=== PATIENT | male | born 1975 | race Caucasian/White ===

== ENCOUNTER 2022-09-12 08:45 | Outpatient (REF) | payer OTHER, SELFPAY ==
[2022-09-12 11:12] LABS: MANUAL DIFF FLAG NO
[2022-09-12 11:48] LABS: Basophils Percent Auto 0.8 % (0-2); Eosinophils Absolute Auto 0.1 X10*3/uL (0.0-0.4); Eosinophils Percent Auto 1.8 % (0-4); Hematocrit 43.6 % (42.0-52.0); Hemoglobin 15.2 g/dl (14.0-18.0); Imm Gran Abs Auto 0.01 X10*3/uL (0.00-0.03); Imm Gran Pct Auto 0.3 % (0.0-0.4); Lymphocytes Absolute Auto 1.1 X10*3/uL (1.2-4.9); Lymphocytes Percent Auto 29.1 % (20-40); Mean Corpuscular HGB Conc 34.9 g/dl (31.0-36.0); Mean Corpuscular Hemoglobin 31.1 pg (27.0-33.0); Mean Corpuscular Volume 89.2 fL (80.0-98.0); Mean Platelet Volume 8.7 fL (9.4-12.4); Monocytes Absolute Auto 0.3 X10*3/uL (0.1-1.2); Monocytes Percent Auto 8.5 % (2-11); Neutrophils Absolute Auto 2.3 x10*3/uL (2.0-8.3); Neutrophils Percent Auto 59.5 % (45-73); Platelet Count 229 X10*3/uL (160-400); Red Blood Count 4.89 X10*6/uL (4.60-5.80); Red Cell Distribution Width 12.6 % (11.0-16.0); White Blood Count 3.9 X10*3/uL (4.8-10.8)
[2022-09-12 12:13] LABS: Estimated Average Glucose 103 mg/dL; Hemoglobin A1c % 5.2 %
[2022-09-12 12:28] LABS: Erythrocyte Sedimentation Rate 7 MM/HR (0-15)
[2022-09-12 12:49] LABS: Alanine Aminotransferase 35 U/L (0-40); Albumin Level 4.2 g/dL (3.5-5.0); Alkaline Phosphatase 78 U/L (39-117); Anion Gap 10 (12-20); Aspartate Amino Transferase 25 U/L (5-37); Bilirubin Total 0.8 mg/dL (0.0-1.0); Blood Urea Nitrogen 16 mg/dL (9-16); C Reactive Protein 0.24 mg/dL (< or = 0.50); Calcium 8.7 mg/dL (8.4-10.2); Carbon Dioxide 30 mmol/L (22-29); Chloride 104 mmol/L (96-108); Cholesterol 195 mg/dL; Estimated Glomerular Filt Rate > 60; Glucose Random 96 mg/dL (60-115); HDL Cholesterol 39 mg/dL; LDL Cholesterol Calculated 146 mg/dl; Potassium 4.2 mmol/L (3.3-5.1); Sodium 140 mmol/L (135-145); Total Protein 6.7 g/dL (6.5-8.0); Triglycerides 50 mg/dL
[2022-09-12 13:08] LABS: Prostate Specific Antigen 0.62 ng/mL (<0.05-4.0)
== END 2022-09-12 08:46 | disposition home or self-care (01) ==
LOC: HO.MANLDS 08:45
PROVIDERS: Visit Provider Physician Assistant
DX: I10 Essential (primary) hypertension (principal); E78.5 Hyperlipidemia, unspecified; R06.02 Shortness of breath; Z12.5 Encounter for screening for malignant neoplasm of prostate
CPT/HCPCS: 36415; 80053; 80061; 83036; 84153; 85025; 85652; 86140

== ENCOUNTER 2023-05-04 07:29 | Outpatient (REF) | payer BC, SELFPAY ==
[2023-05-04 13:27] LABS: MANUAL DIFF FLAG NO
[2023-05-04 13:43] LABS: Basophils Percent Auto 0.7 % (0-2); Eosinophils Absolute Auto 0.1 X10*3/uL (0.0-0.4); Eosinophils Percent Auto 2.3 % (0-4); Hematocrit 45.5 % (42.0-52.0); Hemoglobin 15.6 g/dl (14.0-18.0); Imm Gran Abs Auto 0.02 X10*3/uL (0.00-0.03); Imm Gran Pct Auto 0.5 % (0.0-0.4); Lymphocytes Absolute Auto 1.2 X10*3/uL (1.2-4.9); Lymphocytes Percent Auto 28.9 % (20-40); Mean Corpuscular HGB Conc 34.3 g/dl (31.0-36.0); Mean Corpuscular Hemoglobin 31.6 pg (27.0-33.0); Mean Corpuscular Volume 92.1 fL (80.0-98.0); Mean Platelet Volume 9.2 fL (9.4-12.4); Monocytes Absolute Auto 0.3 X10*3/uL (0.1-1.2); Monocytes Percent Auto 7.7 % (2-11); Neutrophils Absolute Auto 2.6 x10*3/uL (2.0-8.3); Neutrophils Percent Auto 59.9 % (45-73); Platelet Count 222 X10*3/uL (160-400); Red Blood Count 4.94 X10*6/uL (4.60-5.80); Red Cell Distribution Width 12.7 % (11.0-16.0); White Blood Count 4.3 X10*3/uL (4.8-10.8)
[2023-05-04 14:05] LABS: Estimated Average Glucose 97 mg/dL
[2023-05-04 14:11] LABS: Alanine Aminotransferase 34 U/L (0-40); Albumin Level 4.3 g/dL (3.5-5.0); Alkaline Phosphatase 69 U/L (39-117); Anion Gap 11 (12-20); Aspartate Amino Transferase 24 U/L (5-37); Bilirubin Total 0.5 mg/dL (0.0-1.0); Blood Urea Nitrogen 13 mg/dL (9-16); C Reactive Protein 0.19 mg/dL (< or = 0.50); Calcium 9.2 mg/dL (8.4-10.2); Carbon Dioxide 28 mmol/L (22-29); Chloride 107 mmol/L (96-108); Estimated Glomerular Filt Rate > 60; Glucose Random 97 mg/dL (60-115); Potassium 3.9 mmol/L (3.3-5.1); Sodium 142 mmol/L (135-145); Total Protein 7.4 g/dL (6.5-8.0)
[2023-05-04 14:28] LABS: Free T4 (Free Thyroxine) 0.77 ng/dL (0.71-1.85); Thyroid Stimulating Hormone 1.04 uIU/mL (0.32-4.0)
[2023-05-04 14:43] LABS: Erythrocyte Sedimentation Rate 6 MM/HR (0-15)
[2023-05-04 14:45] LABS: Folate 5.9 ng/mL (> or = 4.0); Vitamin B12 331 pg/mL (200-900)
== END 2023-05-04 07:30 | disposition home or self-care (01) ==
LOC: HO.MANLDS 07:29
PROVIDERS: Visit Provider Physician Assistant
DX: R42 Dizziness and giddiness (principal); R51.0 Headache with orthostatic component, not elsewhere classified; R53.83 Other fatigue
CPT/HCPCS: 36415; 80053; 82607; 82746; 83036; 84439; 84443; 85025; 85652; 86140

== ENCOUNTER 2024-12-29 13:16 | Emergency (ER) | payer OTHER, SELFPAY ==
--- OUTSIDE RECORDS SUMMARY | 2024-06-01 11:00 | XMS_ITS | Continuity of Care Document ---
Author Organization [facility] Address [address] [facility] [address] [place] [address] Phone Care Team Providers Care Internet Marketing Manager Name Role Phone Gustavo ANNE, RVSylvia, FRANCA, Jarrell Unavailable U navailable Procedures Procedure Date Office/Outpt E&M Established 15 Mins- CT & [place] Duplex Scan-extrem Veins; Uni/ CT & [place] N Phleb Veins - Extrem 20+ - CT & [place] Duplex Scan-extrem Veins; Uni/ CT & [place] O ct Endovenous Rf, 1st Vein- CT & [place] 2023 Offic/outpt E&m Estab 5 Min Trial- Telem edicine CT & [place] Office/Oupt E&M New Pt 45 Mins- CT & [place] Surgical Stockings CVR Reveal Thigh High - Duplex Scan-extrem Veins; Uni/ CT & [place] J Advance Directives Directive Yes / No Effective Date File Name No Information Encounters Encounter Description Practice Location Reason(s) For Visit Diagnoses Date Provider Providers Copied on Encounter Office/Outpt E&M Established 15 Mins- [place] & [place] [facility], [address] [place] [address] Dr [address], [id number], [place] tel:[phone] CVR - [facility] Venous insufficiency (chronic) (peripheral)Es sential (primary) hypertensionCr amp and spasmRestless legs syndrome 4 Gustavo ANNE RVT, FRANCA Vieyra. [address] [facility], [address], [place], [place], [id number] , [place]. tel:[phone] Referring Provider: Addison Disla, [address] [facility] [address], [place], [address]. tel:[phone] [facility], [address] [place] [address] [address]Al[place], [id number], [place] tel:[phone] [place] Varicose veins of right lower extremity with pain 4 Gustavo ANNE RVT, RPVI Robert. [address] [facility], [address], [facility] [place] [place], [id number] , [place]. tel:[phone] Referring Provider: Addison Disla, [address] [facility] [address], [place], [address]. 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 [address] [facility], [address], [place], [place], [id number] , [place]. tel:[phone] Referring Provider: Addison Disla, [address] [facility] [address], [place], [address]. tel:[phone] [facility], [address] [place] [address] [address]Alen [place], [id number], [place] tel:[phone] [place] Encounter for follow-up examination after completed treatment for conditions other than malignant neoplasmVarico se veins of right lower extremity with other complications 4 Gustavo ANNE RVT, RPVI Robert. [address] [facility], [address], [facility] [place], [id number] , [place]. tel:[phone] Referring Provider: Addison Disla, [address], [place], [address]. tel:[phone] [facility], [address] [place] [address] Dr [address]Al[address] [place], [id number], [place] tel:[phone] [place] Varicose veins of right lower extremity with other complications 4 Gustavo ANNE RVT, FRANCA Vieyra. [address] [place] [address] [address], [place], [place], [id number] , [place]. tel:[phone] Referring Provider: Addison Disla, [address], [place], [address]. tel:[phone] Offic/outpt E&m Estab 5 Min Trial- Telemedicine CT & [place] [facility], [address] [place] [address] [address]Alen [place], [id number], [place] tel:[phone] [place] Varicose veins of right lower extremity with painRestless legs syndromeEssent ial (primary) hypertension 4 Gustvao ANNE RVT, FRANCA Vieyra. [address] [place] [address], [place], [place], [id number] , [place]. tel:[phone] Referring Provider: Addison Disla, [address], [place], [address]. tel:[phone] Office/Oupt E&M New Pt 45 Mins- CT & [place] [facility], [address] [place] [address] [address]Al[place], [id number], [place] tel:[phone] [place] Varicose veins of right lower extremity with painRestless legs syndromeEssent ial (primary) hypertension 4 Gustavo ANNE RVT, FRANCA Vieyra. [address] [facility] [address], [place], [place], [id number] , [place]. tel:[phone] Referring Provider: Stephanie Orourke, [address] [place] [address], [address], [place], [address]. tel:[phone] [facility], [address] [facility] [address], [place], [id number], [place] tel:[phone] [facility] - [place] Varicose veins of right lower extremity with pain Gustavo ANNE, RVT, FRANCA Vieyra. [address] [facility], [address], [place], [id number] , [place]. tel:[phone] Referring Provider: Jarrell Chen MD, ENEDINA, FRANCA, [address] [facility] [address], [place], [address] . tel:[phone] Family History Family Member Type Diagnosis Age At Onset No Information Payers Payer name Insurance type Covered republican ID Olga chapman(s) Dissolve [id number] Social History Type Description Quantity Date Captured Comments Alcohol Use Details Unknown Caffeine Use Details Unknown Tobacco Use Status Current non-smoker Smoking Status Never Smoker Non-Smoking Tobacco Use Details : No Details Available : No Details Available Sex Male Vital Signs Date / Time: Height Weight BMI Pulse Rate Blood Pressure Temperature Respiratory Rate Body Surface Area Head Circumference Head Circ. Percentile Wt./Gopal. Percentile BMI percentile Pulse Ox Inhaled Ox 103.420 kg (228.00 lbs) 36.9 1 kg/m eter (2) 120/80 mm[Hg] Chief Complaint And Reason For Visit No Information Reason For Referral Reason For Referral No Information Plan Of Treatment Date Type Action Status Goal Diet education completed Goal Diet education completed Referral Ordered: Weight management: Referral to physician timeframe: 3 Months (related to Body mass index (BMI) 36.0-36.9, adult) ordered Referral Ordered: Weight management: Referral to physician timeframe: 3 Months (related to Body mass index (BMI) 36.0-36.9, adult) ordered History Of Present Illness Encounter Date Complaint History Of Prese nt Illness No Information Functional Status Date Functional Assessmen t No Information Instructions Date Instruction Additional Infor mation Nov-20-2024 Compression stocking usage as conservative measure Related to Cramp and spasm Diet education Related to Body mass index (BMI) 36.0-36.9, adult Giving Encouragement to exercise Related to Body mass index (BMI) 36.0-36.9, adult Lifestyle education Related to B rona mass index (BMI) 36.0-36.9, adult Patient education booklet given Related to Cramp and spasm Patient education booklet given Related to Varicose veins of right lower extremity with pain Pre and post instruc tions reviewed and provided Related to Varicose veins of right lower extremity with pain Pre and post instruc tions reviewed and provided Related to Varicose veins of right lower extremity with pain Patient education booklet given Related to Varicose veins of right lower extremity with pain Lifestyle education Related to B rona mass index (BMI) 36.0-36.9, adult Giving Encouragement to exercise Related to Body mass index (BMI) 36.0-36.9, adult Diet education Related to Body mass index (BMI) 36.0-36.9, adult Assessments Type Assessment Date No Information Patient Care Teams Name Effective Dates (start - stop) Status Members No Information
--- NOTE | ~2024-12-29 | XR_ITS ---
EXAMINATION: XR FOREARM, LEFT CLINICAL INFORMATION: forearm/ elbow pain COMPARISON: None available. TECHNIQUE: AP and lateral views of the left forearm were obtained. FINDINGS: No acute fracture or deformity is identified. No degenerative changes are seen in the elbow or wrist. No joint effusion is seen. XR/XR forearm LT 2V IMPRESSION: Unremarkable left forearm Electronically signed by: Johan Arana MD 12/29/2024 05:15 PM EDT
--- NOTE | ~2024-12-29 | XR_ITS ---
EXAMINATION: XR HUMERUS, LEFT CLINICAL INFORMATION: heard pop during heavy lifting COMPARISON: None available. TECHNIQUE: AP and lateral views of the left humerus. FINDINGS: The bones and soft tissues are normal. No fracture. Imaged portions of the shoulder and elbow are unremarkable. XR/XR humerus LT IMPRESSION: Normal left humerus. Electronically signed by: Fabián Bro MD 12/29/2024 02:02 PM EDT
--- NOTE | ~2024-12-29 | XR_ITS ---
EXAMINATION: XR SHOULDER, LEFT CLINICAL INFORMATION: heard pop during heavy lifting COMPARISON: None available. TECHNIQUE: Three views of the left shoulder. FINDINGS: Normal bone mineralization. No fracture, dislocation, or suspicious bone lesion. Normal alignment. The glenohumeral joint demonstrates mild degenerative changes. The AC joint is normal. There is a neutral lateral acromion. No undersurface spurring. The subacromial space is preserved. Remainder of the soft tissue and bony structures appear normal. XR/XR shoulder LT min 2V IMPRESSION: 1. No acute findings of the left shoulder. Electronically signed by: Fabián Bro MD 12/29/2024 02:02 PM EDT
[2024-12-29 13:28] VITALS: BP 163/104; PULSE 83; RESP 18; TEMP 36.2; O2SAT 97; BMI 34.8
--- NOTE | 2024-12-29 13:30 | ED.UPPEXIN ---
HPI - Extremity Injury (Upper) General Chief Complaint: Extremity Injury, Upper Stated Complaint: Torn muscle L arm Time Seen by Provider: 12/29/24 15:30 Source: patient Mode of arrival: ambulatory Limitations: no limitations History of Present Illness ED Provider: MARIA DEL CARMEN MONTANEZ PA-C HPI narrative: 49 year old male presents to the ED today for evaluation of left arm pain which began prior to arrival. 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 Reports immediate pain extending from left elbow to left shoulder. No difficulty moving the extremity. Reported nausea associated with the pain that has since subsided. No vomiting. No numbness/tingling/weakness of the left upper extremity. Pain is currently 4/10. Denies blunt injury or trauma. Did not take any inxf-cfi-dacwzeo pain medications prior to arrival. Related Data Allergies Allergy/AdvReac Type Severity Reaction Status Date / Time No Known Allergies Allergy Verified 12/29/24 13:32 Review of Systems Review of Systems: Constitutional: No fever, chills, fatigue, night sweats, weight changes ENT/Mouth: No ear pain, hearing loss, nasal congestion, sinus pain, rhinorrhea, sore throat Eyes: No eye pain, swelling, redness, vision changes, discharge Cardio: No chest pain, palpitations, GAMEZ, orthopnea, peripheral edema Pulm: No SOB, cough, sputum, wheezing, dyspnea, hemoptysis GI: No nausea, vomiting, hematemesis, abdominal pain, diarrhea, constipation, hematochezia, melena : No irregular bleeding, dysuria, frequency, urgency, hesitancy, hematuria, flank pain, urinary flow changes, urinary incontinence or retention MSK: No back pain, neck pain, joint pain, myalgias, +LUE pain Skin: No lesions, rashes Neuro: No weakness, numbness, paresthesias, LOC, dizziness, headache Psych: No anxiety/panic, depression, SI/HI, AH/VH All other systems reviewed and are negative. [facility] Past Medical History Attestation statement: The following information was validated with the patient. Source: old records reviewed and nursing notes reviewed Social History Social History Advance Directives: No Advance Directives Information Provided: Yes Physical Exam Vital Signs: Vital Signs: Last Vital Signs Temp 97.1 F 12/29/24 17:47 Pulse 83 12/29/24 17:47 Resp 18 12/29/24 17:47 BP 163/104 H 12/29/24 17:47 Pulse Ox 97 12/29/24 17:47 O2 Del Method Room Air 12/29/24 17:47 BMI result Body Mass Index 34.8 Hypertensive, vitals otherwise WNL General: Well appearing, in no acute distress. Skin: Warm, dry, intact. No rashes or lesions. Head: Normocephalic, atraumatic. EENT: Hearing is intact b/l. Conjunctiva clear. PERRLA. EOM intact. Moist mucous membranes.? Neck: Supple without LAD Cardiac: Chest wall symmetric. RRR Lungs: Normal respiratory effort without accessory muscle use. CTA bilaterally. Abdomen: Soft, non-tender, non-distended. No rebound tenderness or guarding. Positive BS x4. Back: No midline spinous or paraspinal tenderness. No step off deformity. Ext: +left shoulder and elbow without overlying swelling, deformity or skin changes. Full ROM intact to left shoulder and elbow. Able to fully extend and abduct left shoulder. able to flex/extend L elbow. No pain on supination or pronation of left forearm. No tenderness over left olecranon. 2+ radial pulse intact. Neuro: AOx3. Normal speech. Strength 5/5 intact throughout. Sensation intact to light touch. NV intact distally. Ambulating with steady gait. Psych: Appropriate mood and affect. Responds appropriately to questions. Course Course Course Narrative: 12/29/24 1330 DOROTHY Valle This is a Rapid Medical Examination (RME) performed by Krista Montanez PA-C in triage. Full HPI, ROS, assessment and treatment plan per primary provider in the Main ED. 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 pain extends from L elbow to L shoulder. reports nausea without vomiting which has since resolved. PE/vitals: able to fully extend and abduct left shoulder. Plan: xrs Reevaluation(s) Reevaluation #1: X-rays unremarkable. Medicated with Toradol in the ED. sling applied for comfort. Concern for possible ligament or tendon injury. Ortho referral provided. Patient has remained stable throughout ED visit today. Discussed worrisome signs and symptoms and when to return to the ED. All questions answered at this time. Patient is agreeable with disposition and stable for discharge. Medications Administered Discontinued Medications Generic Name Dose Route Start Last Admin Trade Name Davidsonq PRN Reason Stop Dose Admin Ketorolac Tromethamine 30 mg 12/29/24 17:27 12/29/24 17:36 Ketorolac Tromethamine 30 Mg/Ml Vial IM 12/29/24 17:28 30 mg ONCE ONE Administration Medical Decision Making Medical Decision Making MDM Narrative: 49 year old male presents to the ED today for evaluation of left arm pain which began prior to arrival. hypertensive, vitals are otherwise wnl. he is well appearing and in NAD. on exam of LUE, left shoulder and elbow without overlying swelling, deformity or skin changes. Full ROM intact to left shoulder and elbow. Able to fully extend and abduct left shoulder. able to flex/extend L elbow. No pain on supination or pronation of left forearm. No tenderness over left olecranon. CMS intact distally. Compartments soft. Differential diagnosis includes MSK sprain/strain, fracture, dislocation, tendonitis. Unlikely neurovascular compromise, threat to limb, compartment syndrome, DVT. Plan for imaging, pain control and re-evaluation. Differential Diagnosis Differential Diagnoses: The differential diagnosis associated with the presentation includes as above. Admission/Observation not indicated Independent Interpretation I performed an independent interpretation of an: Plain X-Ray Interpretation: X-rays of left shoulder, humerus, forearm without noted fracture Radiology Impression Discussion of test interpretation with radiology: I have reviewed the radiologist's reading. Radiologist Impression: Date of Service: 12/29/24 Procedure(s): XR shoulder LT min 2V Accession Number(s): [id number] cc: Addison Platt MD; Maria Del Carmen Montanez~ EXAMINATION: XR SHOULDER, LEFT CLINICAL INFORMATION: heard pop during heavy lifting COMPARISON: None available. TECHNIQUE: Three views of the left shoulder. FINDINGS: Normal bone mineralization. No fracture, dislocation, or suspicious bone lesion. Normal alignment. The glenohumeral joint demonstrates mild degenerative changes. The AC joint is normal. There is a neutral lateral acromion. No undersurface spurring. The subacromial space is preserved. Remainder of the soft tissue and bony structures appear normal. XR/XR shoulder LT min 2V IMPRESSION: 1. No acute findings of the left shoulder. Electronically signed by: Fabián Bro MD 12/29/2024 02:02 PM EDT Date of Service: 12/29/24 Procedure(s): XR humerus LT Accession Number(s): [id number] cc: Addison Platt MD; Maria Del Carmen Montanez~ EXAMINATION: XR HUMERUS, LEFT CLINICAL INFORMATION: heard pop during heavy lifting COMPARISON: None available. TECHNIQUE: AP and lateral views of the left humerus. FINDINGS: The bones and soft tissues are normal. No fracture. Imaged portions of the shoulder and elbow are unremarkable. XR/XR humerus LT IMPRESSION: Normal left humerus. Electronically signed by: Fabián Bro MD 12/29/2024 02:02 PM EDT Date of Service: 12/29/24 Procedure(s): XR forearm LT 2V Accession Number(s): [id number] cc: Addison Platt MD; Maria Del Carmen Montanez~ EXAMINATION: XR FOREARM, LEFT CLINICAL INFORMATION: forearm/ elbow pain COMPARISON: None available. TECHNIQUE: AP and lateral views of the left forearm were obtained. FINDINGS: No acute fracture or deformity is identified. No degenerative changes are seen in the elbow or wrist. No joint effusion is seen. XR/XR forearm LT 2V IMPRESSION: Unremarkable left forearm Electronically signed by: Johan Arana MD 12/29/2024 05:15 PM EDT Prescription Management I considered prescription management with: Pain Medication Social Determinants Patient?s care significantly limited by Social Determinants of Health including: Other Social Determinant of Health Procedures Orthopedic Splinting/Casting Injury #1: Side: left Upper Extremity Injury Location: elbow Upper Extremity Immobilizer: sling/shoulder immobilizer Critical Care Time Critical Care Time Critical Care Time: No Discharge Plan Discharge Clinical Impression: Elbow sprain Patient Disposition: Home, Self-Care Instructions: Elbow Sprain (ED), P.R.I.C.E. Treatment (ED) Additional Instructions: Your imaging today is reassuring. No fractures. I have concern for ligament/ tendon injury. I recommend you take 600mg ibuprofen every 6 hours or Tylenol 650mg every 6 hours as needed for pain. If needed, you can alternate these medications so that you take one medication every 3 hours. For example, at noon take ibuprofen, then at 3pm take Tylenol, then at 6pm take ibuprofen. Wear sling as needed for comfort. Follow up with PCP. I have also provided you with a referral to an orthopedic doctor. Please call them to establish care, they will not all you. Return with any new or worsening symptoms. In the case of an emergency call 911. Referrals: [facility] [Provider Group] Addison Platt MD [Primary Care Provider, Medical] Stand Alone Forms: Work/School Release Interventions: ED Discharge Assessment Last Done: 12/29/24 17:47 Discharge Date/Time: 12/29/24 17:47 Print Language: Mongolian
[2024-12-29] MEDS: Ketorolac Tromethamine 30 MG/ML VIAL IM (17:36)
[2024-12-29 17:47] VITALS: BP 163/104; PULSE 83; RESP 18; TEMP 36.2; O2SAT 97
== END 2024-12-29 17:47 | disposition home or self-care (01) ==
PROVIDERS: Emergency Provider Emergency Medicine; PCP Internal Medicine
DX: S53.402A Unspecified sprain of left elbow, initial encounter (principal); M25.522 Pain in left elbow; X50.0XXA Overexertion from strenuous movement or load, initial encounter; Y93.9 Activity, unspecified; Y92.9 Unspecified place or not applicable; Y99.8 Other external cause status
CPT/HCPCS: 29105; 73030; 73060; 73090; 96372; 99283; 99284; J1885

== ENCOUNTER → 2024-12-29 13:33 | Outpatient (BNV) | payer BC, SELFPAY | PROVIDERS: PCP Internal Medicine; Visit Provider Radiology Diagnostic Radiology | DX: M19.012 Primary osteoarthritis, left shoulder (principal); M25.512 Pain in left shoulder; M25.522 Pain in left elbow | CPT/HCPCS: 73030; 73060; 73090 ==

== ENCOUNTER 2025-01-05 08:52 | Outpatient (AMB) | payer OTHER, SELFPAY ==
--- OUTSIDE RECORDS SUMMARY | 2024-06-01 11:00 | XMS_ITS | Continuity of Care Document ---
Author Organization [facility] Address [address] [place] [address] Phone Care Team Providers Care Car Rental Agent Name Role Phone Gustavo ANNE, RVSylvia, FRANCA, [...] Mins- [place] & [place] [facility], [address] [place] [address] [address]Alen [place], [id number], [place] tel:[phone] CVR - [facility] Venous insufficiency (chronic) (peripheral)Es sential (primary) hypertensionCr amp and spasmRestless legs syndrome 4 Gustavo ANNE RVT, FRANCA Vieyra. [address] [facility], [address], [place], [place], [id number] , [place]. tel:[phone] Referring Provider: Addison Disla, [address] [facility] [address], [place], [address]. tel:[phone] [facility], [address] [place] [address] [address]Alen [place], [id number], [place] tel:[phone] [place] Varicose veins of right lower extremity with pain 4 Gustavo ANNE RVT, RPVI Robert. [address] [facility], [address], [facility] [place], [place], [id number] , [place]. tel:[phone] Referring Provider: Addison Disla, [address] [facility] [address], [place], [address]. tel:[phone] [facility], [address] [place] [address] [address]Alen [place], [id number], [place] tel:[phone] [place] Varicose veins of right lower extremity with other complications 4 Gustavo ANNE RVT, RPVI Robert. [address] [facility], [address], [place], [place], [id number] , [place]. tel:[phone] Referring Provider: Addison Disla, [address] [facility] [address], [place], [address]. tel:[phone] [facility], [address] [place] [address] [address]Alen [place], [id number], [place] tel:[phone] [place] Encounter for follow-up examination after completed treatment for conditions other than malignant neoplasmVarico se veins of right lower extremity with other complications 4 Gustavo ANNE RVT, RPVI Robert. [address] [facility], [address], [facility] [place], [id number] , [place]. tel:[phone] Referring Provider: Addison Disla, [address], [place], [address]. tel:[phone] [facility], [address] [place] [address] Dr [address]Alen [place], [id number], [place] tel:[phone] [place] Varicose veins of right lower extremity with other complications 4 Gustavo ANNE RVT, FRANCA Vieyra. [address] [place] [address] [address], [place], [place], [id number] , [place]. tel:[phone] Referring Provider: Addison Disla, [address], [place], [address]. tel:[phone] Offic/outpt E&m Estab 5 Min Trial- Telemedicine CT & [place] [facility], [address] [place] [address] 1000[address] 1000Alen [place], [id number], [place] tel:[phone] [place] Varicose veins of right lower extremity with painRestless legs syndromeEssent ial (primary) hypertension 4 Gustavo ANNE RVT, FRANCA Vieyra. [address] [place] [address], [place], [place], [id number] , [place]. tel:[phone] Referring Provider: Addison Disla, [address], [place], [address]. tel:[phone] Office/Oupt E&M New Pt 45 Mins- CT & [place] [facility], [address] [place] [address] [address]Alen [place], [id number], [place] tel:[phone] [place] Varicose veins of right lower extremity with painRestless legs syndromeEssent ial (primary) hypertension 4 Gustavo ANNE RVT, FRANCA Vieyra. [address] [facility] [address], [place], [place], [id number] , [place]. tel:[phone] Referring Provider: Stephanie Orourke, [address] [place] [address], [address], [place], [address]. tel:[phone] [facility], [address], [place], [id number], [place] tel:[phone] [facility] - [place] Varicose veins of right lower extremity with pain Gustavo ANNE, RVT, FRANCA Vieyra. [address] [facility], [address], [place], [id number] , [place]. tel:[phone] Referring Provider: Jarrell Chen MD, ENEDINA, FRANCA, [address] [facility] [address], [place], [address] . tel:[phone] Family History Family Member Type Diagnosis Age At Onset No Information Payers Payer name Insurance type Covered green party ID Olga chapman(s) Oohly [id number] Social History Type Description Quantity Date Captured [...] Instructions Date Instruction Additional Infor mation Nov-20-2024 Patient education booklet given Related to Cramp and spasm Lifestyle education Related to B rona mass index (BMI) 36.0-36.9, adult Giving Encouragement to exercise Related to Body mass index (BMI) 36.0-36.9, adult Diet education Related to Body mass index (BMI) 36.0-36.9, adult Compression stocking usage as conservative measure Related to Cramp and spasm Pre and post instruc tions reviewed and [...]
[2025-01-05 08:57] VITALS: BMI 34.7
--- NOTE | 2025-01-05 08:57 | MHC.OFFVIS ---
Vital Signs 01/05/25 08:57 Height 5 ft 6 in Weight 215 lb BMI 34.7 Intake Visit Reasons: ED f/u r/o LUE bicep tendon injury Intake Note: Juarez is a 49 year old - hand dominant male who presents today for an emergency department follow up for his left arm. Patient was [place] [facility] [place]24 for this injury. 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 Patient states his pain is triggered with lifting motionand describes his pain as a stabbing sharp pain. Patient reports intermittent numbness and tingling. Denies any treatment in the past week. Denies hx of tendon and elbow injury. Allergies No Known Allergies Allergy (Verified 01/05/25 09:05) [facility] ED f/u r/o LUE bicep tendon injury: Details: Juarez is a 49 year old - hand dominant male who presents today for an emergency department follow up for his left arm. Patient was treated at [facility] [place] 12/29/24 for this injury. 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 Patient states his pain is triggered with lifting motionand describes his pain as a stabbing sharp pain. Patient reports intermittent numbness and tingling. Denies any treatment in the past week. Denies hx of tendon and elbow injury. 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, [employer] Review of Systems Const All systems reviewed & are unremarkable except as noted in HPI and below Physical Exam Vital Signs: BMI result Body Mass Index 34.7 Extrem Other: Patient's left elbow normal to inspection No erythema, ecchymosis, edema noted No lacerations, abrasions, open areas No evidence of infection Patient reports mild to moderate tenderness to palpation of the distal biceps tendon Patient is able to flex, extend, pronate, supinate the left elbow fully Significant weakness with resisted passive pronation and resisted active supination Negative hook test Distal sensation intact Capillary refill brisk Assessment & Plan Assessment & Plan (1) Traumatic partial tear of left biceps tendon: Code(s): S46.212A - Strain of muscle, fascia and tendon of other parts of biceps, left arm, initial encounter Category: Medical Plan 1. Partial distal biceps tendon tear, left Patient is discussed with Dr. Harman, who was available to see the patient with me in clinic today, and a collaborative treatment plan was formed: At this time, surgical intervention is not indicated in this patient, and of Dr. Harman and myself feel it is most appropriate to manage him conservatively Patient is referred to physical therapy for range of motion and gentle strengthening of the left distal biceps tendon Patient is educated she should avoid any heavy lifting in the left elbow for the next 4-6 weeks to allow for healing and to prevent worsening of injury Patient understands this is amenable to this plan Patient is also educated on conservative pain management measures, such as rest, ice, elevation, and [id number] pain medication Follow-up as needed Orders: Orders PT Evaluation and Treatment 01/05/25 S46.212A - Strain of muscle, fascia and tendon of other parts of biceps, left arm, initial encounter Coding Level of Care Code New Pt Level 3 (61689) Diagnoses Traumatic partial tear of left biceps tendon S46.212A
== END 2025-01-05 09:44 | disposition home or self-care (01) ==
LOC: HO.HOS 08:53
PROVIDERS: PCP Internal Medicine
DX: S46.212A Strain of muscle, fascia and tendon of other parts of biceps, left arm, initial encounter (principal)
CPT/HCPCS: 99203